=== PATIENT | female | born 1950 | race Caucasian/White ===

== ENCOUNTER → 2018-01-15 | Emergency (ER) | payer OTHER ==
[~2018-01-15] MED LIST: MAGNESIUM SULF 50% (8.12 MEQ/2 ML-1 GM VIAL) IVPB ONE; MAGNESIUM SULF 50% (8.12 MEQ/2 ML-1 GM VIAL) ONE; MECLIZINE HCL 12.5 MG TABLET ONE; MECLIZINE HCL 25 MG TABLET (FP) ONE; MECLIZINE HCL 25 MG TABLET (FP) PO ONE; ONDANSETRON *ODT* 4 MG TABLET ONE; ONDANSETRON *ODT* 4 MG TABLET SL ONE; SODIUM CHLORIDE 1,000 ML IV STA
[2018-01-15 13:03] VITALS: BMI 32.9
[2018-01-15 16:00] LABS: BASO % 0.4 % (0-2.0); EOS % 0.6 % (0-4.5); HEMATOCRIT 43.8 % (32.4-45.2); HEMOGLOBIN 14.9 GM/dL (10.7-15.3); LYMPH % 14.6 % (8-40); MCH 28.4 pg (25.7-33.7); MCHC 34.2 g/dl (32.0-36.0); MEAN CELL VOLUME 83.2 fl (80-96); MEAN PLT VOLUME 8.7 fl (7.5-11.1); MONO % 4.3 % (3.8-10.2); NEUT % 80.1 % (42.8-82.8); PLATELET COUNT 233 K/MM3 (134-434); RBC 5.26 M/mm3 (3.60-5.2); RDW 13.9 % (11.6-15.6); WHITE BLOOD COUNT 10.7 K/mm3 (4.0-10.0)
[2018-01-15 16:23] LABS: URINE APPEARANCE CLEAR; URINE BILIRUBIN NEGATIVE (<2.0 mg/dL); URINE COLOR LTYELLOW; URINE GLUCOSE (UA) NEGATIVE (NEGATIVE); URINE KETONE TRACE (NEGATIVE); URINE LEUK ESTERASE NEGATIVE (NEGATIVE); URINE NITRITE NEGATIVE (NEGATIVE); URINE PROTEIN NEGATIVE (NEGATIVE); URINE UROBILINOGEN NEGATIVE mg/dL (0.2-1.0)
[2018-01-15 16:30] LABS: ALK PHOS 139 U/L (45-117); ANION GAP 7 MMOL/L (8-16); BILIRUBIN,TOTAL 0.5 mg/dL (0.2-1); BLOOD UREA NITROGEN 12 mg/dL (7-18); CALCIUM 9.4 mg/dL (8.5-10.1); CHLORIDE 103 mmol/L (98-107); CO2 29 mmol/L (21-32); CREATININE 0.6 mg/dL (0.55-1.3); GLUCOSE,RANDOM 154 mg/dL (74-106); MAGNESIUM 1.6 mg/dL (1.8-2.4); POTASSIUM 4.2 mmol/L (3.5-5.1); SGOT/AST 13 U/L (15-37); SGPT/ALT 22 U/L (13-61); SODIUM 139 mmol/L (136-145); TOT PROT 7.5 g/dl (6.4-8.2)
--- NOTE | 2018-01-15 16:37 | PDOC ---
History of Present Illness - General Chief Complaint: Nausea/Vomiting Stated Complaint: DIZZINESS Time Seen by Provider: 01/15/18 14:40 History Source: Patient Exam Limitations: No Limitations ( ) - History of Present Illness Initial Comments: 01/15/18 17:00 67-year-old female presents to the emergency room with complaints of right ear pressure without change in hearing for the past week. Patient also complains of nausea, dizziness and one episode of vomiting. Patient denies visual changes, headache, difficulty swelling, posterior neck pain, chest pain or shortness of breath. He denies history of vertigo, recent illness, fever, recent dental work or recent injury. Timing/Duration: reports: 1 week Severity: Yes: moderate Associated Symptoms: reports: nausea/vomiting, other Past History - Travel Traveled outside of the country in the last 30 days: No Close contact w/someone who was outside of country & ill: No - Past Medical History Allergies/Adverse Reactions: Allergies Allergy/AdvReac Type Severity Reaction Status Date / Time lisinopril AdvReac Verified 01/15/18 12:59 Home Medications: Ambulatory Orders Amlodipine Besylate 5 mg PO DAILY 01/15/18 Diclofenac Sodium 75 mg PO DAILY 01/15/18 Glipizide Xl [Glucotrol Xl -] 10 mg PO DAILY 01/15/18 Hydrochlorothiazide 25 mg PO DAILY 01/15/18 Levothyroxine [Synthroid -] 100 mcg PO DAILY 01/15/18 Lisinopril 10 mg PO DAILY 01/15/18 Omeprazole 20 mg PO DAILY 01/15/18 Pravastatin Sodium 20 mg PO DAILY 01/15/18 Anemia: No Asthma: No Cancer: No COPD: No Diabetes: Yes HTN: Yes Hypercholesterolemia: Yes - Surgical History Abdominal Surgery: No Appendectomy: No Cardiac Surgery: No - Immunization History Immunization Up to Date: Yes - Suicide/Smoking/Psychosocial Hx Smoking Status: No Smoking History: Never smoked Number of Cigarettes Smoked Daily: 0 Hx Alcohol Use: No Drug/Substance Use Hx: No Patient Lives Alone: No Lives with/in: spouse/SO Review of Systems - Review of Systems Able to Perform ROS?: No Constitutional: No: Symptoms Reported HEENTM: No: Symptoms Reported Respiratory: No: Symptoms reported Cardiac (ROS): No: Symptoms Reported ABD/GI: Yes: Nausea, Vomiting Musculoskeletal: No: Symptoms Reported Integumentary: No: Symptoms Reported Neurological: Yes: Dizziness. No: Headache Endocrine: No: Symptoms Reported Hematologic/Lymphatic: No: Symptoms Reported *Physical Exam - Vital Signs Last Vital Signs Temp Pulse Resp BP Pulse Ox 97.9 F 94 H 18 118/93 97 01/15/18 13:01 01/15/18 16:00 01/15/18 13:01 01/15/18 16:00 01/15/18 13:01 - Physical Exam General Appearance: Yes: Nourished, Appropriately Dressed. No: Apparent Distress HEENT: positive: EOMI, NEELIMA, TMs Normal (rt tm and canal intact). negative: Pharynx Normal (rt posterior pharnyx with mild erythema), Pale Conjunctivae Neck: positive: Supple Respiratory/Chest: positive: Lungs Clear, Normal Breath Sounds. negative: Respiratory Distress, Accessory Muscle Use Cardiovascular: positive: Regular Rhythm, Regular Rate. negative: Murmur Gastrointestinal/Abdominal: positive: Soft. negative: Tenderness Musculoskeletal: negative: CVA Tenderness Extremity: positive: Normal Capillary Refill, Normal Range of Motion. negative : Pedal Edema Integumentary: positive: Normal Color, Warm, Moist Neurologic: positive: Motor Strength 5/5, Other (Hallpike positive to the right) ED Treatment Course - LABORATORY CBC & Chemistry Diagram: 01/15/18 15:54 01/15/18 15:54 - ADDITIONAL ORDERS Additional order review: Laboratory Results 01/15/18 01/15/18 16:00 15:13 POC Glucometer 134.98245 Urine Color Ltyellow Urine Appearance Clear Urine pH 5.0 Ur Specific [place] 1.013 Urine Protein Negative Urine Glucose (UA) Negative Urine Ketones Trace H Urine Blood Negative Urine Nitrite Negative Urine Bilirubin Negative Urine Urobilinogen Negative Ur Leukocyte Esterase Negative 01/15/18 15:28 Group A Strep Rapid Antigen - Final Throat 01/15/18 01/15/18 15:54 15:13 RBC 5.26 H MCV 83.2 MCHC 34.2 RDW 13.9 MPV 8.7 Neutrophils % 80.1 D Lymphocytes % 14.6 D Monocytes % 4.3 Eosinophils % 0.6 Basophils % 0.4 POC Glucometer 134.11615 - RADIOLOGY Radiology Studies Ordered: Category Date Time Status HEAD CT WITHOUT CONTRAST [CT] Stat CT Scan 01/15/18 15:26 Ordered CHEST X-RAY PORTABLE* [RAD] Stat Radiology 01/15/18 15:28 Ordered - Medications Given in the ED: ED Medications Discontinued Medications Generic Name Dose Route Start Last Admin Trade Name Charlie PRN Reason Stop Dose Admin Meclizine HCl 25 mg 01/15/18 15:29 01/15/18 15:23 Antivert - PO 01/15/18 15:30 25 mg ONCE ONE Administration Ondansetron HCl 4 mg 01/15/18 15:29 01/15/18 15:23 Zofran Odt - SL 01/15/18 15:30 4 mg ONCE ONE Administration Medical Decision Making - Medical Decision Making 01/15/18 17:33 CC: rt ear pain, dizzy, n/v Exam: + hallpikes to the right. Rt tm /canal intact. Mild erythema to rt posterior pharynx Plan: meclizine, zofran, labs, ua, head ct, bgm (132) 01/15/18 18:18 Patient states feeling somewhat better and is able to ambulate without feeling nauseous but does state mild dizziness. Patient went for an additional 12.5 mg of meclizine with normal saline and magnesium 2 g IV. Patient also given a dinner tray 01/15/18 18:18 Laboratory Tests 01/15/18 01/15/18 01/15/18 15:13 15:54 15:54 WBC 10.7 H Hgb 14.9 Hct 43.8 Absolute Neuts (auto) 8.6 H Neutrophils % 80.1 D Sodium 139 Potassium 4.2 Chloride 103 Carbon Dioxide 29 Anion Gap 7 L BUN 12 Creatinine 0.6 Creat Clearance w eGFR > 60 POC Glucometer 134.80603 Random Glucose 154 H Calcium 9.4 Magnesium 1.6 L Total Bilirubin 0.5 AST 13 L Alkaline Phosphatase 139 H Creatine Kinase 62 Troponin I < 0.02 Urine Ketones Urine Blood Urine Nitrite Urine Bilirubin Urine Urobilinogen Ur Leukocyte Esterase 01/15/18 16:00 WBC Hgb Hct Absolute Neuts (auto) Neutrophils % Sodium Potassium Chloride Carbon Dioxide Anion Gap BUN Creatinine Creat Clearance w eGFR POC Glucometer Random Glucose Calcium Magnesium Total Bilirubin AST Alkaline Phosphatase Creatine Kinase Troponin I Urine Ketones Trace H Urine Blood Negative Urine Nitrite Negative Urine Bilirubin Negative Urine Urobilinogen Negative Ur Leukocyte Esterase Negative CT negative. Chest x-ray negative. We will discharge patient shortly. Prescription for meclizine and neuro consult *DC/Admit/Observation/Transfer Diagnosis at time of Disposition: Vertigo - Discharge Dispostion Disposition: HOME Condition at time of disposition: Improved - Referrals Referrals: Kj Willard MD [Primary Care Provider] - Roque Machado DO [Staff Physician] - - Patient Instructions Printed Discharge Instructions: DI for Benign Paroxysmal Positional Vertigo Additional Instructions: Take meclizine as prescribed. Please get up in increments as discussed. Please follow up with referred neurologist. If symptoms do not improve over the next few days she may return to the ED. - Post Discharge Activity
[2018-01-15 18:58] VITALS: BP 138/93; PULSE 86; TEMP 98
== END | disposition home or self-care (01) ==
LOC: JER 12:37
PROC: 3E0337Z Introduction of Electrolytic and Water Balance Substance into Peripheral Vein, Percutaneous Approach (ICD-10-PCS; principal; 2018-01-15)
PROC: 3E033GC Introduction of Other Therapeutic Substance into Peripheral Vein, Percutaneous Approach (ICD-10-PCS; 2018-01-15)
DX: H81.11 Benign paroxysmal vertigo, right ear (principal); I10 Essential (primary) hypertension; E11.9 Type 2 diabetes mellitus without complications; Z79.84 Long term (current) use of oral hypoglycemic drugs; E78.00 Pure hypercholesterolemia, unspecified
CPT/HCPCS: 36415; 70450-TC; 71045-TC-FY; 80053; 81003; 82550; 82962; 83735; 84484; 85025; 87070; 87086; 87430; 96361; 96374; 99285-25; J7030; Q0162

== ENCOUNTER 2022-07-04 11:02 | Emergency (ER) | payer OTHER ==
[2022-07-04 11:23] VITALS: RESP 18; BMI 30.7
[2022-07-04] MEDS ORDERED: ACETAMINOPHEN 500 MG TABLET (FP) PO ONE (11:52)
[2022-07-04] MEDS ORDERED: ACETAMINOPHEN 500 MG TABLET (FP) ONE (12:56)
[2022-07-04] MEDS ORDERED: KETOROLAC TROMETHAMINE 30 MG/1 ML VIAL IM ONE (13:44)
[2022-07-04] MEDS ORDERED: KETOROLAC TROMETHAMINE 30 MG/1 ML VIAL ONE ×2 (14:42→14:49)
[2022-07-04 15:52] VITALS: BP 133/88; PULSE 82; TEMP 98.5
== END 2022-07-04 16:11 | disposition home or self-care (01) ==
LOC: JER 11:02
PROC: 3E0233Z Introduction of Anti-inflammatory into Muscle, Percutaneous Approach (ICD-10-PCS; principal; 2022-07-04)
DX: M25.532 Pain in left wrist (principal); M25.552 Pain in left hip; W10.8XXA Fall (on) (from) other stairs and steps, initial encounter
CPT/HCPCS: 72170-TC-FY; 73110-TC-LT-FY; 73130-TC-LT-FY; 73502-TC-LT-FY; 93005; 93010; 99284-25